=== PATIENT | female | born 1955 | race Caucasian/White ===

== ENCOUNTER 2023-05-06 13:01 | Emergency (ER) | payer MEDICARE, SELFPAY ==
[2023-05-06 13:08] VITALS: BP 114/75
[2023-05-06 13:50] LABS: % Basophils 0.4 % (0-2); % Eosinophils 0.7 % (0-6); % Immature Granulocytes 0.3 % (0-0.5); % Lymphocytes 34.5 % (20.5-51.1); % Monocytes 6.3 % (1.7-9.3); % Neutrophils 57.8 % (42.2-75.2); Absolute Eosinophils 0.1 10^3/uL (0-0.7); Absolute Lymphocytes 2.6 10^3/uL (1.2-3.4); Absolute Monocytes 0.5 10^3/uL (0.1-0.6); Absolute Neutrophils 4.3 10^3/uL (1.4-6.5); Hematocrit 36.4 % (37.0-47.0); Hemoglobin 11.7 g/dL (12.0-16.0); Mean Corp Hgb Conc. 32.1 g/dL (33.0-37.0); Mean Corpuscular Volume 93.3 fL (81.0-99.0); Mean Platelet Volume 10.2 fL (7.4-10.4); Nucleated Red Blood Cells % 0 %; Platelet Count 240 10^3/uL (130-400); Red Cell Dist. Width 13.5 % (11.5-14.5); White Blood Cell Count 7.5 10^3/uL (4.8-10.8)
[2023-05-06 13:53] LABS: ALT (SGPT) < 10 U/L (0-35); AST (SGOT) 21 U/L (14-36); Albumin 4.2 g/dl (3.5-5.0); Alkaline Phosphatase 54 U/L (38-126); Blood Urea Nitrogen 19 mg/dl (7-17); Calcium 9.4 mg/dl (8.4-10.2); Carbon Dioxide 26 mmol/L (22-30); Chloride 108 mmol/L (98-107); Glucose 86 mg/dl (70-99); Lipase 115 U/L (23-300); Potassium 3.7 mmol/L (3.5-5.1); Sodium 136 mmol/L (135-145); Total Protein 6.5 g/dl (6.3-8.2); eGFR > 60.00
--- NOTE | 2023-05-06 16:42 | ED.GENMED ---
History of Present Illness
General
Chief Complaint: Abdominal Symptoms
Time Seen by Provider: 05/06/23 16:42
Travel History
Have you had any contact with someone who has COVID-19?: No
Do you have any symptoms of coronavirus? Fever > 100 degrees, chills, cough, shortness of breath, sore throat, loss of taste or smell, muscle aches, or headache?: No
History of Present Illness
History of Present Illness:
HPI: Patient presents with abdominal pain associate with nausea, vomiting, and diarrhea. She states that when she eats something she then vomits or has diarrhea or both. She has a history of bowel resection most recently in 2019. She overall just
feels unwell. She is going to be starting Stelara this week.
EXAM:
GENERAL: Well appearing in no distress
HEENT: Moist oral mucosa
CARDIOVASCULAR: No murmurs, normal heart rate, regular rhythm, No chest wall tenderness
PULMONARY: No respiratory distress, breath sounds are clear and equal
ABDOMEN: Soft with no peritoneal signs, mild diffuse abdominal tenderness
NEUROLOGIC: Excellent strength all extremities, no coordination deficits
PSYCHIATRIC: Appropriate mental status, normal insight and judgement
EXTREMITIES: Nontender, no edema, moves all extremities equally
SKIN: No rash, no lesions
TIME OF INITIAL ENCOUNTER: 4:55 PM
NUMBER AND COMPLEXITY OF PROBLEMS ADDRESSED AT THE ENCOUNTER
� Chronic conditions affecting care: Crohn's disease status post bowel resection x 3, Parkinson's
� Acute Exacerbation and/or Progression of Chronic Illness: This is an acute but recurring problem
� Differential Diagnosis includes: Exacerbation of Crohn's disease, bowel obstruction, viral syndrome, dehydration, TONE
AMOUNT AND/OR COMPLEXITY OF DATA TO BE REVIEWED AND ANALYZED
� I performed an independent evaluation of and my interpretation is:
EKG:
CT: CT shows signs of ileitis
X-rays:
Laboratory Studies: White count is normal at 7.5, hemoglobin 11.7, chemistries unremarkable including LFTs and lipase
Other:
� Review of other/old records: No old records available for review here
� Clinical information was obtained by an independent historian: None needed
� Prescriptions/Medications Considered but not given:
� Further testing considered but not performed:
RISK OF COMPLICATIONS AND/OR MORBIDITY OR MORTALITY OF PATIENT MANAGEMENT
� Social determinants of health affecting care: Lives at home, drove herself here
� Discussion with other providers: Discussed case with Dr. Thomson agree patient could be discharged patient agrees and prefers to go home as she will be getting Stelara tomorrow
� Escalation of care including admission/observation vs risk of discharge considered: The patient is given IV fluids, Toradol, and Zofran, her white count is normal and chemistries are unremarkable. Will also check CT imaging.
CT imaging does show signs of ileitis but white count and C-reactive protein are both normal
Phy Exam
Physical Exam
Physical Exam:
See HPI
Course
Orders/Labs/Results
Orders:
Orders
05/06/23 13:11
IV Insert/Care/Rem.- Treatment PRN
05/06/23 13:15
C-Reactive Protein Urgent
Comment: ADDON
Complete Blood Count/With Diff Urgent
Comprehensive Metabolic Panel Urgent
Lipase Urgent
05/06/23 16:42
Add On- LAB Urgent
Tests Added?: cRP
05/06/23 16:57
0.9% Sodium Chloride 1000 ml [Nss] 1,000 ml IV BOLUS
Ketorolac [Toradol] 15 mg IV NOW STA
Ondansetron Injectable [Zofran] 4 mg IV NOW STA
05/06/23 16:58
CT Abd/pelvis W Iv Cont Urgent
Comment:
Reason For Exam: abd pain n/v/d crohns cannot maulik po
05/06/23 20:42
Ketorolac [Toradol] 15 mg IV NOW STA
Abnormal Lab Results
05/06/23
13:15
RBC 3.90 L 10^6/uL
(4.20-5.40)
Hgb 11.7 L g/dL
(12.0-16.0)
Hct 36.4 L %
(37.0-47.0)
MCHC 32.1 L g/dL
(33.0-37.0)
Chloride 108 H mmol/L
(98-107)
BUN 19 H mg/dl
(7-17)
05/06/23 13:15
05/06/23 13:15
Vital Signs
Initial and Last Documented VS:
Initial Vital Signs
Temp Pulse Resp BP Pulse Ox
97.7 F 74 18 114/75 97
05/06/23 13:08 05/06/23 13:08 05/06/23 13:08 05/06/23 13:08 05/06/23 13:08
Last Documented Vital Signs
Temp Pulse Resp BP Pulse Ox
97.7 F 74 18 109/67 99
05/06/23 13:08 05/06/23 13:08 05/06/23 13:08 05/06/23 19:37 05/06/23 19:38
*Critical Care Note
Total Time (30-74mins, 75-104mins- exclusive of procedures): Not Applicable
ED Attending Note
-
Portions of this chart may have been created with voice recognition software.� Occasional wrong word or��sound alike� substitutions may have occurred due to the inherent limitations of voice recognition software.
Discharge Plan
Departure
Patient Disposition: Home (Routine Discharge)
Date of Disposition: 05/06/23
Time of Disposition: 20:43
Patient with high blood pressure during this ER visit?: No
Discharge Problem:
Exacerbation of Crohn's disease
Referrals:
Rangel,Jeffy, DO [Family Provider] -
Activity Restrictions/Additional Instructions:
Follow-up tomorrow with GI for Stelara. Return here if worse. We have given you IV Toradol. Your white blood cell count and C-reactive protein are both normal however CT imaging does show signs of ileitis.
Interventions
Interventions:
*Risk Screen - Suicide Last Done: 05/06/23 13:08
*General Assessment Last Done: 05/06/23 13:08
*Neglect/Abuse Screening Last Done: 05/06/23 13:08
ED- Fall Risk Assessment Last Done: 05/06/23 17:23
*ED COVID-19 Vaccine History Last Done: 05/06/23 17:23
QH-Yvpyfq-Aiycafslgk Assessment Last Done: 05/06/23 17:23
Discharge Date and Time
Print Language: LAO
[2023-05-06 17:09] VITALS: BP 128/80
[2023-05-06] MEDS: NSS 1000 IV (17:17)
[2023-05-06] MEDS: ZOFRAN 4 MG IV (17:18)
[2023-05-06] MEDS: TORADOL 15 MG IV ×2 (17:18→20:50)
[2023-05-06 17:22] VITALS: BMI 25.1
[2023-05-06 18:00] VITALS: BP 119/58
[2023-05-06 18:09] LABS: C-Reactive Protein < 5.00 mg/L (0.0-10.00)
[2023-05-06 19:37] VITALS: BP 109/67
== END 2023-05-06 20:59 | disposition home or self-care (01) ==
LOC: EMR 13:01
PROVIDERS: Emergency Medicine; EMERGENCY PHYSICIAN Emergency Medicine; FAMILY PHYSICIAN Family Medicine
DX: K50.90 Crohn's disease, unspecified, without complications (principal); Z98.0 Intestinal bypass and anastomosis status; Z88.2 Allergy status to sulfonamides; Z88.8 Allergy status to other drugs, medicaments and biological substances
CPT/HCPCS: 99285; 96375 ×2; 96361; 96374; 74177; 80053; 83690; 85025; 86140; Q9967

== ENCOUNTER → 2023-08-24 05:58 | Day surgery (SDC) | payer MEDICARE, SELFPAY | LOC: GI 05:58 | PROVIDERS: ATTENDING PHYSICIAN Internal Medicine Gastroenterology | DX: R12 Heartburn (principal); R63.4 Abnormal weight loss; R11.0 Nausea; K29.50 Unspecified chronic gastritis without bleeding | CPT/HCPCS: 43239; 88305; 88342 ==

== ENCOUNTER → 2023-11-27 06:19 | Day surgery (SDC) | payer MEDICARE, SELFPAY | LOC: GI 06:19 | PROVIDERS: ATTENDING PHYSICIAN Internal Medicine Gastroenterology | DX: K64.4 Residual hemorrhoidal skin tags (principal); Z98.0 Intestinal bypass and anastomosis status; K63.5 Polyp of colon; K63.89 Other specified diseases of intestine; K64.8 Other hemorrhoids; K50.00 Crohn's disease of small intestine without complications; K52.9 Noninfective gastroenteritis and colitis, unspecified | CPT/HCPCS: 45385; 45380; 88305 ==

== ENCOUNTER → 2024-03-20 12:37 | Outpatient (REF) | payer MEDICARE, SELFPAY | LOC: RAD 12:37 | PROVIDERS: ATTENDING PHYSICIAN Internal Medicine Gastroenterology; FAMILY PHYSICIAN Family Medicine | DX: L98.8 Other specified disorders of the skin and subcutaneous tissue (principal) | CPT/HCPCS: 74177; Q9967 ==